=== PATIENT | male | born 1990 | race Caucasian/White ===

== ENCOUNTER 2023-07-01 06:58 | Emergency (ER) | payer SELFPAY ==
[~2023-07-01] VITALS: Ht 177.8 cm; Wt 91.0 kg
[2023-07-01 07:03] VITALS: BP 111/59; PULSE 90; RESP 18; TEMP 98.2; O2SAT 100
[2023-07-01] MEDS ORDERED: LIDOCAINE HCL/PF 1% 10 MG/ML 5ML VIAL INFIL ONE (07:45)
[2023-07-01] MEDS ORDERED: TETANUS, DIPHTHERIA, PERTUSSIS VAC/PF 0.5ML (>10YR OLD) IM ONE (07:45)
[2023-07-01] MEDS ORDERED: TOPUD PO (08:46)
[2023-07-01] MEDS ORDERED: AMOX1TAB16 PO (08:46)
== END 2023-07-01 09:27 | disposition home or self-care (01) ==
LOC: ER 08:14
DX: S81.851A Open bite, right lower leg, initial encounter (principal); S61.451A Open bite of right hand, initial encounter; W54.0XXA Bitten by dog, initial encounter; Y93.89 Activity, other specified; Y92.89 Other specified places as the place of occurrence of the external cause; Y99.8 Other external cause status
CPT/HCPCS: 99283; J3490; Z7610

== ENCOUNTER 2023-07-06 11:24 | Emergency (ER) | payer SELFPAY ==
[~2023-07-06] VITALS: Ht 180.3 cm; Wt 114.0 kg
[~2023-07-06 11:24] MED LIST: AMOX1TAB16 PO; TOPUD PO
[2023-07-06 11:39] VITALS: BP 136/80; RESP 16; TEMP 98.5; O2SAT 96
[2023-07-06 11:43] VITALS: PULSE 65
== END 2023-07-06 12:15 | disposition home or self-care (01) ==
LOC: ER 11:53
DX: S81.851A Open bite, right lower leg, initial encounter (principal); W54.0XXA Bitten by dog, initial encounter; Y93.89 Activity, other specified; Y92.89 Other specified places as the place of occurrence of the external cause; Y99.8 Other external cause status
CPT/HCPCS: 99281